=== PATIENT | male | born 1995 | race Caucasian/White ===

== ENCOUNTER 2016-12-29 19:39 | Emergency (ER) | payer BC, MEDICAID ==
[2016-12-29 19:49] VITALS: BP 117/58
--- NOTE | 2016-12-29 20:07 | EDM.PDOC ---
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 No treatment to this point, including OTC NSAIDs, wound care, etc. He denies any foreign body, paresthesias , neurological deficits, or other complaints or injuries. No recent history of abdominal pain, heartburn, nausea, diarrhea, melena, gross hematochezia, or any food intolerance, including fatty foods, etc.. The patient also denies any recent fever, cough, wheezing, dyspnea, etc.. Onset: Today, Sudden Onset Date: 12/29/16 Onset Time: 19:30 Duration: Constant Location: Reports: Upper Extremity, Right. Denies: Head, Face, Neck, Chest, Abdomen, Back, Pelvis, Upper Extremity, Left, Generalized, Radiates to Quality: Reports: Sharp Severity: Mild Improves with: Reports: Rest Worsens with: Reports: Movement Context: Reports: Trauma (As above) Associated Symptoms: Reports: No Other Symptoms. 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 Denies: Arrhythmia, CAD, Hypertension Respiratory History: Reports: Asthma Other Respiratory History: Asthma in 7th grade, resolved now. Gastrointestinal History: Reports: Other (See Below) Other Gastrointestinal History: Mild LFTs elevation on 10/02/11, borderline splenomegaly by previous x-rays Endocrine/Metabolic History: Reports: Hypothyroidism, Multinodular Thyroid, Other (See Below) Other Endocrine/Metabolic History: History of hypothyroidism initially diagnosed in 2009 with thyroid ultrasound mild benign thyroid nodules - Past Surgical History HEENT Surgical History: Reports: Oral Surgery, Other (See Below) Other HEENT Surgeries/Procedures: [place] teeth extraction 4 at age 19 GI Surgical History: Reports: None. Denies: Appendectomy, Hernia, Abdominal, Hernia, Inguinal, Hernia Repair/Other Male Surgical History: Reports: None. Denies: Circumcision Endocrine Surgical History: Reports: None. Denies: Thyroid Biopsy - Past Imaging History Past Imaging History: Reports: Sleep Study (Sleep study including EEG evaluation on 12/12/07), Ultrasound (Right lower quadrant ultrasound on 12/17/06 , thyroid ultrasound on 11/13/08), Other (See Below) (IVP on 07/13/06) Social & Family History - Family History Family Medical History: Noncontributory - Tobacco Use Smoking Status *Q: Never Smoker Tobacco Use Within Last Twelve Months: No Smoking Cessation Information Provided To Patient: No Second Hand Smoke Exposure: No Second Hand Smoke Education Provided: No - Caffeine Use Caffeine Use: Reports: Soda (1 soda per day). Denies: Coffee, Energy Drinks - Living Situation & Occupation Living situation: Reports: with Family (Parents) Occupation: Employed ([employer]) ED ROS GENERAL - Review of Systems Review Of Systems: ROS reveals no pertinent complaints other than HPI. ED EXAM, GENERAL - Physical Exam Exam: See Below Exam Limited By: No Limitations General Appearance: Alert, WD/WN, No Apparent Distress Head: Atraumatic, Normocephalic Neck: Normal Inspection, Supple, Non-Tender, Full Range of Motion. No: Lymphadenopathy (L), Lymphadenopathy (R), Thyromegaly Respiratory/Chest: No Respiratory Distress, Lungs Clear, Normal Breath Sounds, No Accessory Muscle Use, Chest Non-Tender. No: Pleural Rub, Retractions Cardiovascular: Normal Peripheral Pulses, Regular Rate, Rhythm, No Edema, No Gallop, No JVD, No Murmur, No Rub. No: Gallop/S3, Gallop/S4, Friction Rub Peripheral Pulses: 2+: Radial (L), Radial (R) GI/Abdominal: Normal Bowel Sounds, Soft, Non-Tender, No Organomegaly, No Distention, No Abnormal Bruit, No Mass. No: Guarding (Male) Exam: Deferred Rectal (Males) Exam: Deferred Back Exam: Normal Inspection, Full Range of Motion. No: Muscle Spasm Extremities: Normal Range of Motion, No Pedal Edema, Normal Capillary Refill, Other (Minimal tenderness over laceration site with 1.5 cm in diameter irregular laceration over the thenar surface of the palm region of the right hand with no foreign body, crepitation, deformity or evidence of fracture). No : Yaahira's Sign Neurological: Alert, Oriented, CN II-XII Intact, Normal Cognition, Normal Gait, Normal Reflexes, No Motor/Sensory Deficits Psychiatric: Normal Affect, Normal Mood Skin Exam: Normal Color, No Rash, Wound/Incision (As above), Other (Vitiligo of the left eyebrow and left upper eyelashes). No: Diaphoretic Lymphatic: No Adenopathy ED GENERAL MEDICAL PROCEDURES - Laceration/Wound Repair Right Proximal Ventral Hand Lac/wound length in cm: 1.5 Appearance: Superficial, Irregular, Clean Distal NVT: Neuro & Vascular Intact, No Tendon Injury Anesthetic Type: Local Local Anesthesia - Lidocaine (Xylocaine): 1% Plain Local Anesthetic Volume: 5cc Skin Prep: Providone-Iodine (Betadine) (Including soak) Saline irrigation (cc's): 0 Exploration/Debridement/Repair: Wound Explored, In a Bloodless Field, Explored to Base, No Foreign Material Found, Multiple Flaps Aligned Closed with: Sutures Suture Size: 4-0 # of Sutures: 3 Suture Type: Nylon, Interrupted, Simple Drain Placement: No Sterile Dressing Applied: Nurse Tetanus Status Addressed: Yes Complications: No Course - Vital Signs Last Recorded V/S: Last Vital Signs Temp 36.6 C 12/29/16 19:41 Pulse 64 12/29/16 19:41 Resp 16 12/29/16 19:41 BP 117/58 L 12/29/16 19:41 Pulse Ox Vital Signs - 24 hr 12/29/16 19:41 Temperature [ 36.6 C Temporal] Pulse, 64 Peripheral [ Left Pulse Oximetry] Respiratory 16 Rate Blood Pressure 117/58 L [Left Upper Arm ] - Orders/Labs/Meds Orders: Active Orders 24 hr Category Date Time Status Vaccines to be Administered [RC] PER UNIT ROUTINE Care 12/29/16 20:36 Ordered Diphth,Pertuss(Acell),Tet Vac [Adacel] Med 12/29/16 20:36 Once 0.5 ml IM .ONCE ONE Obtain Past Medical Record [OM.PC] Routine Oth 12/29/16 20:07 Active Labs: None Meds: Medications Discontinued Medications Generic Name Dose Route Start Last Admin Trade Name Raghav PRN Reason Stop Dose Admin Lidocaine HCl 5 ml 12/29/16 20:08 12/29/16 20:13 Xylocaine-Mpf 1% INJECT 12/29/16 20:09 5 ml ONETIME ONE Administration Lidocaine HCl 5 ml 12/29/16 20:09 12/29/16 20:13 Xylocaine-Mpf 1% INJECT 12/29/16 20:10 5 ml ONETIME ONE Administration Neomycin/Polymyxin/Bacitracin 1 each 12/29/16 20:08 12/29/16 20:13 Triple Antibiotic Oint TOP 12/29/16 20:09 1 each ONETIME ONE Administration - Radiology Interpretation Free Text/Narrative:: None Departure - Departure Time of Disposition: 20:55 Disposition: Home, Self-Care 01 Condition: Good Clinical Impression: Laceration, Hypothyroidism (acquired), LFT elevation, Vitiligo - Discharge Information Instructions: Laceration Care, Adult, [id number], Stitches, Malathi, or Adhesive Wound Closure, [id number], Hypothyroidism Referrals: Eva Rodriguez PA-C [Primary Care Provider] - Forms: ED Department Discharge Additional Instructions: 1. Followup with your regular provider in 10-14 days as directed for reevaluation and removal of 3 stitches. 2. Tylenol 650 mg by mouth every 4 hours and/or OTC ibuprofen 2-3 tabs by mouth every 6 hours with food as directed./needed. 3. Antibacterial soap wash/soak with subsequent antibacterial dressing such as Neosporin, etc. as directed 2 times per day until the wound or laceration site completely heals. Keep the area clean and dry with activity restrictions as discussed. 4. Recommend general health profile at the above follow-up visit secondary to previous history of mild LFTs elevation and hypothyroidism - Problem List & Annotations (1) Laceration SNOMED Code(s): 847096698 Code(s): JWP4677 - Status: Acute Priority: High Onset Date: 12/29/16 Annotation/Comment:: Excellent results with laceration repair as above. Work excuse is not needed. Wound care and activity restrictions were discussed. DTaP was given (2) Hypothyroidism (acquired) SNOMED Code(s): 210028097 Code(s): E03.9 - HYPOTHYROIDISM, UNSPECIFIED Status: Chronic Priority: Medium Annotation/Comment:: History of small benign thyroid nodules and elevated TSH with patient being noncompliant with his Synthroid since 2009. Follow-up by regular provider at time of suture removal with recommended blood work as per discharge instructions, including repeat thyroid level. Medication compliance strongly encouraged (3) LFT elevation SNOMED Code(s): 187335742 Code(s): R79.89 - OTHER SPECIFIED ABNORMAL FINDINGS OF BLOOD CHEMISTRY Status: Chronic Priority: Medium Onset Date: 10/02/11 Annotation/Comment: : History of mild distant LFTs elevation in October 2011 with no known workup. Patient does not know his cholesterol status. Repeat lab work as per discharge instructions with consideration of lipid panel, etc. depending on these results (4) Vitiligo SNOMED Code(s): 73694351 Code(s): L80 - VITILIGO Status: Chronic Priority: Medium Annotation/ Comment:: Stable by history - Problem List Review Problem List Initiated/Reviewed/Updated: Yes - My Orders Last 24 Hours: My Active Orders 12/29/16 20:07 Obtain Past Medical Record [OM.PC] Routine 12/29/16 20:36 Vaccines to be Administered [RC] PER UNIT ROUTINE Diphth,Pertuss(Acell),Tet Vac [Adacel] 0.5 ml IM .ONCE ONE - Assessment/Plan Last 24 Hours: My Active Orders 12/29/16 20:07 Obtain Past Medical Record [OM.PC] Routine 12/29/16 20:36 Vaccines to be Administered [RC] PER UNIT ROUTINE Diphth,Pertuss(Acell),Tet Vac [Adacel] 0.5 ml IM .ONCE ONE Assessment:: As above Plan: As above. Extensive precautions were given to the patient, who is in agreement with the treatment plan. See Patient Instructions for further treatment and plan.
[2016-12-29] MEDS ORDERED: Bacitracin/Neomycin/Polymyxin B Oint 0.9 GM U/D Packet TOP ONE (20:08)
[2016-12-29] MEDS ORDERED: Diphtheria,Pertussis(Acell),Tetanus Vaccine 0.5 ML SDV IM ONE (20:36)
== END 2016-12-29 21:50 | disposition home or self-care (01) ==
LOC: LL.ED 19:39
DX: S61.411A Laceration without foreign body of right hand, initial encounter (principal); E03.9 Hypothyroidism, unspecified; R79.89 Other specified abnormal findings of blood chemistry; L80 Vitiligo; W26.8XXA Contact with other sharp object(s), not elsewhere classified, initial encounter
CPT/HCPCS: 12001; 90471; 90715; 99283

== ENCOUNTER 2017-05-03 11:05 | Emergency (ER) | payer BC ==
[2017-05-03 11:12] VITALS: BP 133/64
--- NOTE | 2017-05-03 13:01 | EDM.PDOC ---
ED HPI GENERAL MEDICAL PROBLEM - General Chief Complaint: Upper Extremity Injury/Pain Stated Complaint: right hand swelling Time Seen by Provider: 05/03/17 11:28 Source of Information: Reports: Patient History Limitations: Reports: No Limitations - History of Present Illness INITIAL COMMENTS - FREE TEXT/NARRATIVE: Patient punched wall last night around 9pm. ETOH involved. Today presents with pain in right hand. No numbness/tingling. Denies other injuries. 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 [No Known Home Meds] 05/03/17 [History] Past Medical History HEENT History: Reports: Impaired Vision, Other (See Below) Other HEENT History: Wears glasses Cardiovascular History: Reports: None Respiratory History: Reports: Asthma Other Respiratory History: Asthma in 7th grade, resolved now. Gastrointestinal History: Reports: Other (See Below) Other Gastrointestinal History: Mild LFTs elevation on 10/02/11, borderline splenomegaly by previous x-rays Endocrine/Metabolic History: Reports: Hypothyroidism, Multinodular Thyroid, Other (See Below) Other Endocrine/Metabolic History: History of hypothyroidism initially diagnosed in 2008 with thyroid ultrasound mild benign thyroid nodules - Past Surgical History HEENT Surgical History: Reports: Oral Surgery, Other (See Below) Other HEENT Surgeries/Procedures: [place] teeth extraction 4 at age 19 GI Surgical History: Reports: None Male Surgical History: Reports: None Endocrine Surgical History: Reports: None - Past Imaging History Past Imaging History: Reports: Sleep Study (Sleep study including EEG evaluation on 12/12/07), Ultrasound (Right lower quadrant ultrasound on 12/17/06 , thyroid ultrasound on 11/13/08), Other (See Below) (IVP on 07/13/06) Social & Family History - Family History Family Medical History: Noncontributory - Tobacco Use Smoking Status *Q: Never Smoker Second Hand Smoke Exposure: No - Caffeine Use Caffeine Use: Reports: Soda (1 soda per day). Denies: Coffee, Energy Drinks - Recreational Drug Use Recreational Drug Use: Yes Drug Use in Last 12 Months: Yes Recreational Drug Type: Reports: Marijuana/Hashish - Living Situation & Occupation Living situation: Reports: with Family (Parents) Occupation: Employed ([employer]) Review of Systems - Review of Systems Review Of Systems: ROS reveals no pertinent complaints other than HPI. ED EXAM, GENERAL - Physical Exam Exam: See Below Exam Limited By: No Limitations General Appearance: Alert, WD/WN, No Apparent Distress Eye Exam: Bilateral Eye: EOMI, PERRL Head: Atraumatic, Normocephalic Respiratory/Chest: No Respiratory Distress Peripheral Pulses: 2+: Radial (R) Extremities: Other (mild edema and early bruising noted right hand near 3-5th metacarpals. Increased pain base of 4th and 5th metacarpals with palpation. No crepitus. Hand NVI. ) Neurological: Alert, Oriented, Normal Cognition, Normal Gait, No Motor/Sensory Deficits (able to flex and extend fingers of right hand) Psychiatric: Normal Affect, Normal Mood Skin Exam: Warm, Dry, Intact ED TRAUMA EXTREMITY PROCEDURES - Splinting Right Upper Extremity Splint Site: right wrist Pre-Procedure NV Status: Normal Post-Procedure NV Status: Normal Splint Material: Fiberglass Splint Design: Boxer Splint Applied & Form Fitted By: Provider Provider Post-Splint Application NV Check: NV Status Normal, Good Position Complications: No Course - Vital Signs Last Recorded V/S: Last Vital Signs Temp 36.3 C 05/03/17 11:07 Pulse 84 05/03/17 11:07 Resp 20 05/03/17 11:07 BP 133/64 05/03/17 11:07 Pulse Ox 97 05/03/17 11:07 - Orders/Labs/Meds Orders: Active Orders 24 hr Category Date Time Status Hand Comp Min 3V Rt [CR] Stat Exams 05/03/17 11:28 Ordered - Radiology Interpretation Free Text/Narrative:: Suspect very small fracture base of 5th metacarpal. Mildly displaced fracture of 4th noted at base of metacarpal. Radiology confirmed fracture of 4th. - Re-Assessments/Exams Free Text/Narrative Re-Assessment/Exam: 05/03/17 13:15 Patient splinted. Reviewed treatment plan and follow up recommendations with patient. Tylenol or Ibuprofen for pain as needed. Ice/elevation recommended. Departure - Departure Time of Disposition: 13:08 Disposition: Home, Self-Care 01 Condition: Good Clinical Impression: Fracture of metacarpal bone Qualifiers: Encounter type: initial encounter Metacarpal bone: fourth Fracture type: closed Metacarpal location: base Fracture alignment: displaced Laterality: right Qualified Code(s): S62.314A - Displaced fracture of base of fourth metacarpal bone, right hand, initial encounter for closed fracture - Discharge Information Instructions: Metacarpal Fracture, [id number] Referrals: Saul Lara [employer] [Primary Care Provider] - Forms: ED Department Discharge, ED Return to Work/School Form Additional Instructions: Call clinic tomorrow and see if they want to refer you up to Ortho instead of being treated locally. If they wish for you to go to Ortho, plan to drive to [place] on Thursday to be seen at Ortho walk-in clinic. Further restrictions and treatment plan can be discussed at that time. Ice/elevate/Tylenol or Ibuprofen for pain as needed. Wear splint for comfort and protections. - My Orders Last 24 Hours: My Active Orders 05/03/17 11:28 Hand Comp Min 3V Rt [CR] Stat - Assessment/Plan Last 24 Hours: My Active Orders 05/03/17 11:28 Hand Comp Min 3V Rt [CR] Stat
== END 2017-05-03 13:15 | disposition home or self-care (01) ==
LOC: LL.ED 11:05
DX: S62.314A Displaced fracture of base of fourth metacarpal bone, right hand, initial encounter for closed fracture (principal); W22.01XA Walked into wall, initial encounter
CPT/HCPCS: 29125; 73130-RT; 99283

== ENCOUNTER 2021-11-17 12:34 | Emergency (ER) | payer BC, OTHER ==
[2021-11-17 13:17] LABS: ANION GAP 8.4 meq/L (7-15); CHLORIDE,CL 104 mmol/L (98-107); SODIUM,NA 139 mmol/L (136-145)
[2021-11-17 13:19] LABS: ESTIMATED GFR 91 mL/min (>=60)
[2021-11-17 13:32] VITALS: BP 141/94; PULSE 68
== END 2021-11-17 15:32 | disposition home or self-care (01) ==
LOC: LL.ED 12:34
DX: N13.2 Hydronephrosis with renal and ureteral calculous obstruction (principal); E03.9 Hypothyroidism, unspecified; E66.9 Obesity, unspecified; Z68.30 Body mass index [BMI] 30.0-30.9, adult
CPT/HCPCS: 36415; 74177; 80053; 81001; 83690; 83735; 85025; 86140; 99284